=== PATIENT | female | born 1970 | race Caucasian/White ===

== ENCOUNTER → 2016-11-29 | Outpatient (CLI) | payer OTHER ==
[~2016-11-29] MED LIST: ANAPROX DS550 MG PO; AUGMENTIN 875 M1 TAB PO; BENTYL20 MG PO; BIAXIN500 MG PO; CEPHALEXIN500 M1 PO; CIPRODEX 0.3%-7.5 ML OT; CIPROFLOXACIN500 MG PO; CLARITIN10 MG PO; DIFLUCAN150 MG PO; DONNATAL1 TAB PO; EES400 MG PO; FISH OIL 10001000 MG PO; FISH OIL1000 MG PO; MASON NATURAL2000 IU PO; MOTRIN800 MG PO; MYLICON, MYLANT80 MG PO; NKHM; PRILOSEC20 M1; PROVENTIL0.09 MG/AC IH; SIMETHICONE PO; TUMS500 MG PO; ZANTAC150 MG PO; ZITHROMAX Z PA250 MG PO; ZOFRAN4 MG PO; [UNRECOGNIZED DRUG - OTHER] PO; [UNRECOGNIZED DRUG - OTHER] PO
--- NOTE | ~2016-11-29 | PR ---
[place], [place] PROGRESS NOTE NAME: ZIA CARREON UNIT #: [id number] ROOM: DOCTOR: SINDY WU M.D. BIRTHDATE: [birth year] DOS: 11/29/2016 CHIEF COMPLAINT: Followup of laceration of finger. HISTORY OF PRESENT ILLNESS: The patient suffered a laceration to the fifth digit on the right hand at the very tip. She had it sutured in the Emergency Room Department and comes in today without any specific complaints. She said overall it is much better. She is not having any pain or discomfort and is not draining anything. PHYSICAL EXAMINATION: VITAL SIGNS: Stable. Blood pressure is 98/62, pulse 68, respirations 18, temperature 98.8. The sutures appear to be ready to be removed all the sutures were removed and the wound is still slightly open superficially but appears to be healing quite well and in general the swelling is much improved as well. We will have the patient to continue with bacitracin and have her follow up in 1 week, just to ensure complete healing. SINDY WU MD CM:SOO [id number] SINDY WU M.D. 11/29/16 1329 interface
== END ==
LOC: WOUNDCARE 02:25
DX: S61.216D Laceration without foreign body of right little finger without damage to nail, subsequent encounter (principal); X58.XXXD Exposure to other specified factors, subsequent encounter

== ENCOUNTER 2017-12-26 08:23 | Emergency (ER) | payer OTHER ==
[~2017-12-26] VITALS: Ht 160 cm; Wt 70.3 kg
[2017-12-26] MEDS ORDERED: CEFDINIR300 MG PO (08:29)
[2017-12-26 09:13] LABS: BILIRUBIN NEGATIVE (NEGATIVE); BLOOD 2+ (NEGATIVE); CLARITY SL CLOUDY (CLEAR); COLOR YELLOW (YELLOW); GLUCOSE NEGATIVE (NEGATIVE); KETONE NEGATIVE (NEGATIVE); LEUKO ESTERASE TRACE (NEGATIVE); NITRITE NEGATIVE (NEGATIVE); SPECIFIC GRAVITY <= 1.005 (1.005-1.030); UROBILINOGEN 0.2 E.U./dl (0.2-1.0)
[2017-12-26 09:14] LABS: BASO # 0.1 10*3/uL (0.0-0.1); BASO % 0.6 % (0.0-1.0); EOS # 0.2 10*3/uL (0.0-0.4); EOS % 1.7 % (1.0-4.0); HEMATOCRIT 45.4 % (37.0-47.0); HEMOGLOBIN 15.4 g/dl (12.0-16.0); LYMPH # 2.7 10*3/uL (1.3-4.4); LYMPH % 21.1 % (27.0-41.0); MEAN CORPUSCULAR HGB 30.2 pg (27.0-31.0); MEAN CORPUSCULAR HGB CONC 33.9 g/dl (33.0-37.0); MEAN PLATELET VOLUME 9.7 fl (9.6-12.3); MONO # 0.9 10*3/uL (0.1-1.0); MONO % 6.7 % (3.0-9.0); NEUT # 8.9 10*3/uL (2.3-7.9); NEUT % 69.6 % (47.0-73.0); PLATELET COUNT AUTOMATED 314 10*3/uL (130-400); RED CELL DISTRI WIDTH 13.1 % (0-14.5); WHITE BLOOD COUNT 12.7 10*3/uL (4.8-10.8)
[2017-12-26 09:23] LABS: ACT PARTIAL THROMBO TIME 24.3 SECONDS (20.8-31.5); INTERNATIONAL NORM RATIO 0.9 (2.0-3.5)
[2017-12-26 09:26] LABS: BACTERIA 2+
[2017-12-26 09:30] LABS: ALBUMIN 3.9 gm/dl (3.1-4.5); ALKALINE PHOSPHATASE 112 U/L (45-117); BUN 7 mg/dl (7-24); CHLORIDE 109 mmol/L (98-107); CREATININE 0.75 mg/dL (0.55-1.02); LIPASE 166 U/L (73-393); POTASSIUM 3.8 mmol/L (3.5-5.1); SGOT/AST 11 IU/L (3-35); SGPT/ALT 24 U/L (12-78); SODIUM 139 mmol/L (136-145); TOTAL PROTEIN 7.6 gm/dL (6.4-8.2)
[2017-12-26 09:31] LABS: BETA-HCG, QUANT < 1.0 mIU/mL (1-3); TROPONIN I < 0.015 ng/ml (<0.045)
[2017-12-26] MEDS ORDERED: ZOFRAN ODT4 MG SL (10:19)
== END 2017-12-26 10:30 | disposition home or self-care (01) ==
LOC: ED 08:23
PROVIDERS: Emergency Medicine
DX: N39.0 Urinary tract infection, site not specified (principal); R10.84 Generalized abdominal pain; K58.9 Irritable bowel syndrome, unspecified; Z88.0 Allergy status to penicillin; Z88.6 Allergy status to analgesic agent; Z79.899 Other long term (current) drug therapy

== ENCOUNTER → 2018-02-04 | Outpatient (CLI) | payer OTHER ==
[~2018-02-04] MED LIST changes: +CEFDINIR300 MG PO; +ZOFRAN ODT4 MG SL
== END | disposition home or self-care (01) ==
LOC: CT 07:58
DX: K76.89 Other specified diseases of liver (principal); R11.2 Nausea with vomiting, unspecified; R19.7 Diarrhea, unspecified

== ENCOUNTER 2018-02-08 11:13 | Emergency (ER) | payer OTHER ==
[~2018-02-08] VITALS: Ht 167.6 cm; Wt 61.2 kg
[2018-02-08 11:30] LABS: HEMATOCRIT 44.1 % (37.0-47.0); HEMOGLOBIN 14.8 g/dl (12.0-16.0); MEAN CELL VOLUME 90.7 fl (81.0-99.0); MEAN CORPUSCULAR HGB 30.5 pg (27.0-31.0); MEAN CORPUSCULAR HGB CONC 33.6 g/dl (33.0-37.0); PLATELET COUNT AUTOMATED 346 10*3/uL (130-400); RED BLOOD COUNT 4.86 10*6/uL (4.10-5.10); RED CELL DISTRI WIDTH 13.6 % (0-14.5); WHITE BLOOD COUNT 17.1 10*3/uL (4.8-10.8)
[2018-02-08 11:34] LABS: BILIRUBIN NEGATIVE (NEGATIVE); BLOOD TRACE-INTACT (NEGATIVE); CLARITY CLEAR (CLEAR); COLOR YELLOW (YELLOW); GLUCOSE NEGATIVE (NEGATIVE); KETONE NEGATIVE (NEGATIVE); LEUKO ESTERASE NEGATIVE (NEGATIVE); NITRITE NEGATIVE (NEGATIVE); PH 6.5 (5.0-9.0); SPECIFIC GRAVITY <= 1.005 (1.005-1.030); UROBILINOGEN 0.2 E.U./dl (0.2-1.0)
[2018-02-08 11:45] LABS: ALBUMIN 3.8 gm/dl (3.1-4.5); ALKALINE PHOSPHATASE 109 U/L (45-117); BUN 7 mg/dl (7-24); CHLORIDE 106 mmol/L (98-107); CREATININE 0.78 mg/dL (0.55-1.02); LIPASE 395 U/L (73-393); POTASSIUM 3.9 mmol/L (3.5-5.1); SGOT/AST 10 IU/L (3-35); SGPT/ALT 25 U/L (12-78); SODIUM 141 mmol/L (136-145); TOTAL PROTEIN 7.3 gm/dL (6.4-8.2)
[2018-02-08 11:47] LABS: BACTERIA TRACE
[2018-02-08 11:50] LABS: TOTAL CELLS COUNTED 100 #CELLS
[2018-02-08 11:51] LABS: PLATELET SUFFICIENCY NORMAL (NORMAL)
== END 2018-02-08 13:44 | disposition home or self-care (01) ==
LOC: ED 11:13
PROVIDERS: Nurse Practitioner Family
DX: D72.829 Elevated white blood cell count, unspecified (principal); R14.0 Abdominal distension (gaseous); Z88.0 Allergy status to penicillin; Z88.6 Allergy status to analgesic agent

== ENCOUNTER 2018-02-27 18:33 | Emergency (ER) | payer OTHER ==
[~2018-02-27] VITALS: Ht 160 cm; Wt 65.8 kg
[2018-02-27] MEDS ORDERED: B121000 MCG/1 IM (18:46)
[2018-02-27] MEDS ORDERED: BUSPIRONE HCL15 MG PO (18:47)
[2018-02-27 19:30] LABS: BILIRUBIN NEGATIVE (NEGATIVE); BLOOD 1+ (NEGATIVE); CLARITY CLEAR (CLEAR); COLOR YELLOW (YELLOW); GLUCOSE NEGATIVE (NEGATIVE); KETONE NEGATIVE (NEGATIVE); LEUKO ESTERASE NEGATIVE (NEGATIVE); NITRITE NEGATIVE (NEGATIVE); PH 5.5 (5.0-9.0); SPECIFIC GRAVITY <= 1.005 (1.005-1.030); UROBILINOGEN 0.2 E.U./dl (0.2-1.0)
[2018-02-27 19:31] LABS: BASO # 0.1 10*3/uL (0.0-0.1); BASO % 0.6 % (0.0-1.0); EOS # 0.2 10*3/uL (0.0-0.4); EOS % 1.9 % (1.0-4.0); HEMATOCRIT 45.6 % (37.0-47.0); HEMOGLOBIN 15.3 g/dl (12.0-16.0); LYMPH # 3.7 10*3/uL (1.3-4.4); LYMPH % 29.7 % (27.0-41.0); MEAN CELL VOLUME 90.7 fl (81.0-99.0); MEAN CORPUSCULAR HGB 30.4 pg (27.0-31.0); MEAN CORPUSCULAR HGB CONC 33.6 g/dl (33.0-37.0); MEAN PLATELET VOLUME 10.4 fl (9.6-12.3); MONO # 0.7 10*3/uL (0.1-1.0); MONO % 5.7 % (3.0-9.0); NEUT # 7.6 10*3/uL (2.3-7.9); NEUT % 61.8 % (47.0-73.0); PLATELET COUNT AUTOMATED 348 10*3/uL (130-400); RED BLOOD COUNT 5.03 10*6/uL (4.10-5.10); RED CELL DISTRI WIDTH 13.6 % (0-14.5); WHITE BLOOD COUNT 12.4 10*3/uL (4.8-10.8)
[2018-02-27 19:46] LABS: ALBUMIN 4.1 gm/dl (3.1-4.5); ALKALINE PHOSPHATASE 117 U/L (45-117); BUN 6 mg/dl (7-24); CHLORIDE 107 mmol/L (98-107); CREATININE 0.84 mg/dL (0.55-1.02); POTASSIUM 3.2 mmol/L (3.5-5.1); SGOT/AST 11 IU/L (3-35); SGPT/ALT 24 U/L (12-78); SODIUM 141 mmol/L (136-145); TOTAL PROTEIN 7.8 gm/dL (6.4-8.2)
[2018-02-27 19:48] LABS: FREE T4 0.94 ng/dl (0.76-1.46)
[2018-02-27] MEDS ORDERED: K-TAB20 MEQ PO (20:48)
== END 2018-02-27 21:15 | disposition home or self-care (01) ==
LOC: ED 18:33
PROVIDERS: Physician Assistant
DX: E87.6 Hypokalemia (principal); R53.1 Weakness; Z79.899 Other long term (current) drug therapy; Z88.0 Allergy status to penicillin; Z88.6 Allergy status to analgesic agent

== ENCOUNTER 2018-03-12 14:34 | Inpatient (IN) | payer OTHER ==
[~2018-03-12] VITALS: Ht 160 cm; Wt 65.5 kg
--- NOTE | ~2018-03-12 | CON ---
[place], [place] REPORT OF CONSULTATION NAME: ZIA CARREON UNIT #: [id number] ROOM: 404 DOCTOR: RAIZA HUDSON MD BIRTHDATE: [birth year] DOS: 03/14/2018 PSYCHIATRIC CONSULTATION CHIEF COMPLAINT: "Oh, I am so glad you came, Dr. Hudson, I have just been so depressed and anxious." HISTORY OF PRESENT ILLNESS: This is a 47-year-old white female admitted through the Emergency Room due to shortness of breath, palpitations, extreme fatigue. The patient reports that she has been battling significant anxiety and depression now for several months and the symptoms have been worsening of late. She did see Dr. Dickens, her family doctor, who prescribed her BuSpar. She is deathly afraid of taking any medication and took the 15 mg pill that he prescribed and broke the pill into several small pieces before she even took any. She reports that she has difficulty falling asleep, sleep continuity disturbance. She wakes up extremely fatigued. She has no desire to do anything. It has been a chore for her to get to work. The anxiety that she has per her report is 24/7 and is a constant nagging anxiety. She is worried about everything and fearful about everything. She has no previous psychiatric treatment and has never been to a counselor before. She is not suicidal or homicidal. PAST MEDICAL HISTORY: Remarkable for osteomyelitis as a child, hyperlipidemia, irritable bowel syndrome, depression, and anxiety. SOCIAL HISTORY: The patient consumes alcohol socially. She does not use illicit drugs. She smokes cigarettes 1 pack a day since the age of 19. MENTAL STATUS: She is alert and oriented to person, place, and time. Mood is depressed with anxious overtone. She is almost hyperverbal. There is no tanner or hypomania. However, the hyperverbalness is more anxiety driven. There are no suicidal, homicidal, or self-injurious thoughts. Memory is intact. DIAGNOSES: Major depression, recurrent and panic disorder. PLAN: I have gone ahead and ordered her Cymbalta 20 mg a day. I have discussed this with her at length. She is willing to try this. She is also open to counseling. There is a new psychologist that is going to be affiliated with Dr. Raza Arellano who will have an office here in the hospital. I would recommend that we refer the patient to her. At this point, no further treatment is needed. [place], [place] REPORT OF CONSULTATION NAME: ZIA CARREON UNIT #: [id number] ROOM: 404 DOCTOR: RAIZA HUDSON MD BIRTHDATE: [birth year] RAIZA HUDSON MD CM:CONSTR:REPORT OF CONSULTATION 1348 03/14/18 2255 interface
[~2018-03-12 14:34] MED LIST changes: +B121000 MCG/1 IM; +BUSPIRONE HCL15 MG PO; +K-TAB20 MEQ PO
[2018-03-12 14:38] VITALS: BP 129/70
[2018-03-12 14:55] LABS: BILIRUBIN NEGATIVE (NEGATIVE); BLOOD 1+ (NEGATIVE); CLARITY CLEAR (CLEAR); COLOR STRAW (YELLOW); GLUCOSE NEGATIVE (NEGATIVE); KETONE NEGATIVE (NEGATIVE); LEUKO ESTERASE NEGATIVE (NEGATIVE); NITRITE NEGATIVE (NEGATIVE); SPECIFIC GRAVITY <= 1.005 (1.005-1.030); UROBILINOGEN 0.2 E.U./dl (0.2-1.0)
[2018-03-12 15:06] LABS: BACTERIA 1+
[2018-03-12 15:19] LABS: BASO # 0.1 10*3/uL (0.0-0.1); BASO % 0.7 % (0.0-1.0); EOS # 0.2 10*3/uL (0.0-0.4); EOS % 1.6 % (1.0-4.0); HEMATOCRIT 44.5 % (37.0-47.0); HEMOGLOBIN 14.6 g/dl (12.0-16.0); LYMPH # 3.2 10*3/uL (1.3-4.4); LYMPH % 26.5 % (27.0-41.0); MEAN CORPUSCULAR HGB 29.9 pg (27.0-31.0); MEAN CORPUSCULAR HGB CONC 32.8 g/dl (33.0-37.0); MEAN PLATELET VOLUME 9.7 fl (9.6-12.3); MONO # 0.6 10*3/uL (0.1-1.0); MONO % 4.6 % (3.0-9.0); NEUT # 8.1 10*3/uL (2.3-7.9); NEUT % 66.4 % (47.0-73.0); PLATELET COUNT AUTOMATED 358 10*3/uL (130-400); RED BLOOD COUNT 4.89 10*6/uL (4.10-5.10); RED CELL DISTRI WIDTH 13.3 % (0-14.5); WHITE BLOOD COUNT 12.2 10*3/uL (4.8-10.8)
[2018-03-12 15:35] LABS: ALBUMIN 3.9 gm/dl (3.1-4.5); ALKALINE PHOSPHATASE 119 U/L (45-117); BUN 4 mg/dl (7-24); CHLORIDE 108 mmol/L (98-107); CREATININE 0.72 mg/dL (0.55-1.02); POTASSIUM 3.7 mmol/L (3.5-5.1); SGOT/AST 11 IU/L (3-35); SGPT/ALT 22 U/L (12-78); SODIUM 141 mmol/L (136-145); TOTAL PROTEIN 7.3 gm/dL (6.4-8.2)
[2018-03-12 16:05] LABS: FREE T4 1.11 ng/dl (0.76-1.46)
[2018-03-12 16:09] LABS: THYROID STIM HORMONE (HS) 1.61 uIU/ml (0.358-4.75)
[2018-03-12 16:55] VITALS: BP 107/69
[2018-03-12 17:46] LABS: LIPASE 124 U/L (73-393); TROPONIN I < 0.015 ng/ml (<0.045)
[2018-03-12 19:45] VITALS: BP 108/57
[2018-03-12 20:08] VITALS: BP 109/53
[2018-03-12 20:10] VITALS: BP 109/53
[2018-03-12] MEDS ORDERED: COLON HERBAL C1 EACH PO (20:29)
[2018-03-13] VITALS: BP 96/51
[2018-03-13 05:56] LABS: BASO # 0.1 10*3/uL (0.0-0.1); BASO % 0.5 % (0.0-1.0); EOS # 0.2 10*3/uL (0.0-0.4); EOS % 2.2 % (1.0-4.0); HEMATOCRIT 42.1 % (37.0-47.0); HEMOGLOBIN 13.7 g/dl (12.0-16.0); LYMPH # 3.6 10*3/uL (1.3-4.4); LYMPH % 34.6 % (27.0-41.0); MEAN CELL VOLUME 91.3 fl (81.0-99.0); MEAN CORPUSCULAR HGB 29.7 pg (27.0-31.0); MEAN CORPUSCULAR HGB CONC 32.5 g/dl (33.0-37.0); MEAN PLATELET VOLUME 10.2 fl (9.6-12.3); MONO # 0.7 10*3/uL (0.1-1.0); MONO % 6.4 % (3.0-9.0); NEUT # 5.8 10*3/uL (2.3-7.9); PLATELET COUNT AUTOMATED 341 10*3/uL (130-400); RED BLOOD COUNT 4.61 10*6/uL (4.10-5.10); RED CELL DISTRI WIDTH 13.4 % (0-14.5); WHITE BLOOD COUNT 10.4 10*3/uL (4.8-10.8)
[2018-03-13 06:12] LABS: ALBUMIN 3.3 gm/dl (3.1-4.5); ALKALINE PHOSPHATASE 106 U/L (45-117); BUN 3 mg/dl (7-24); CHLORIDE 113 mmol/L (98-107); CHOLESTEROL 174 mg/dL (<200); CREATININE 0.76 mg/dL (0.55-1.02); PHOSPHOROUS 3.4 mg/dL (2.5-4.9); POTASSIUM 3.6 mmol/L (3.5-5.1); SGOT/AST 7 IU/L (3-35); SGPT/ALT 21 U/L (12-78); SODIUM 145 mmol/L (136-145); TOTAL PROTEIN 6.6 gm/dL (6.4-8.2); TRIGLYCERIDES 148 mg/dl (<150); VLDL CHOLESTEROL 30 mg/dL (6-40)
[2018-03-13 06:13] LABS: HDL CHOLESTEROL 27 mg/dl (40-60); LDL CHOLESTEROL 117 mg/dL (9-159)
[2018-03-13 08:00] VITALS: BP 101/50
[2018-03-13 08:08] LABS: VITAMIN D, 25-HYDROXY 26.5 ng/mL (30-100)
[2018-03-13 12:00] VITALS: BP 96/47
[2018-03-13 16:00] VITALS: BP 98/57
[2018-03-13 20:00] VITALS: BP 106/59
[2018-03-14] VITALS: BP 95/42
[2018-03-14 01:39] VITALS: BP 108/64
[2018-03-14 06:35] LABS: BASO # 0.1 10*3/uL (0.0-0.1); BASO % 0.5 % (0.0-1.0); EOS # 0.2 10*3/uL (0.0-0.4); EOS % 2.4 % (1.0-4.0); HEMOGLOBIN 13.4 g/dl (12.0-16.0); LYMPH # 2.8 10*3/uL (1.3-4.4); LYMPH % 30.4 % (27.0-41.0); MEAN CELL VOLUME 91.9 fl (81.0-99.0); MEAN CORPUSCULAR HGB CONC 32.7 g/dl (33.0-37.0); MEAN PLATELET VOLUME 10.3 fl (9.6-12.3); MONO # 0.8 10*3/uL (0.1-1.0); MONO % 8.3 % (3.0-9.0); NEUT # 5.3 10*3/uL (2.3-7.9); NEUT % 58.2 % (47.0-73.0); PLATELET COUNT AUTOMATED 315 10*3/uL (130-400); RED BLOOD COUNT 4.46 10*6/uL (4.10-5.10); RED CELL DISTRI WIDTH 13.4 % (0-14.5); WHITE BLOOD COUNT 9.2 10*3/uL (4.8-10.8)
[2018-03-14 06:50] LABS: ALBUMIN 3.4 gm/dl (3.1-4.5); BUN 2 mg/dl (7-24); CHLORIDE 111 mmol/L (98-107); POTASSIUM 3.6 mmol/L (3.5-5.1); SGOT/AST 7 IU/L (3-35); SGPT/ALT 23 U/L (12-78); SODIUM 146 mmol/L (136-145); TOTAL PROTEIN 6.6 gm/dL (6.4-8.2)
[2018-03-14 06:52] LABS: ALKALINE PHOSPHATASE 100 U/L (45-117); CREATININE 0.86 mg/dL (0.55-1.02)
[2018-03-14 08:00] VITALS: BP 97/43
[2018-03-14 12:00] VITALS: BP 115/51
[2018-03-14] MEDS ORDERED: DULOXETINE HCL20 MG PO (13:18)
[2018-03-14] MEDS ORDERED: FLAGYL500 MG PO (15:00)
[2018-03-14] MEDS ORDERED: CIPRO500 MG PO (15:00)
[2018-03-14] MEDS ORDERED: DICYCLOMINE HCL20 MG PO (15:01)
== END 2018-03-14 15:39 | disposition home or self-care (01) | DRG 392 ==
LOC: ED 14:34 → 4E 18:57 → EDHOLD 18:57 → 4E 19:55
PROVIDERS: Family Medicine; Internal Medicine Nephrology; Nurse Practitioner
DX: K52.9 Noninfective gastroenteritis and colitis, unspecified (principal); E87.8 Other disorders of electrolyte and fluid balance, not elsewhere classified; K76.0 Fatty (change of) liver, not elsewhere classified; F33.9 Major depressive disorder, recurrent, unspecified; R00.1 Bradycardia, unspecified; R07.9 Chest pain, unspecified; R14.3 Flatulence; E66.3 Overweight; F17.210 Nicotine dependence, cigarettes, uncomplicated; E55.9 Vitamin D deficiency, unspecified; E53.9 Vitamin B deficiency, unspecified; F41.9 Anxiety disorder, unspecified; E78.5 Hyperlipidemia, unspecified; D72.810 Lymphocytopenia; F41.0 Panic disorder [episodic paroxysmal anxiety]; Z90.49 Acquired absence of other specified parts of digestive tract; Z71.6 Tobacco abuse counseling; Z88.0 Allergy status to penicillin; Z88.8 Allergy status to other drugs, medicaments and biological substances; Z82.0 Family history of epilepsy and other diseases of the nervous system; Z68.25 Body mass index [BMI] 25.0-25.9, adult